=== PATIENT | male | born 1960 ===

== ENCOUNTER 2019-03-31 17:22 | Emergency (ER) | payer OTHER ==
--- NOTE | 2019-03-31 17:23 | UC ---
Skin Complaint HPI - HPI Summary HPI Summary: 58 yo male presents with tick bite to LEFT hip. He tells me that he believes it was attached around 12 hours and was not engorged. He removed the tick this evening without issues. He says that he researched the CDC guidelines and admits that his risk of lyme disease transmission is very low, but he wants to be "conservative" and is requesting prophylactic doxycycline at this time. He has not symptoms currently. Does not have the tick with him today - History of Current Complaint Time Seen by Provider: 03/31/19 17:23 Stated Complaint: TICK BITE Hx Obtained From: Patient Onset/Duration: Sudden Onset Current Severity: None - Allergy/Home Medications Allergies/Adverse Reactions: Allergies Allergy/AdvReac Type Severity Reaction Status Date / Time No Known Allergies Allergy Verified 03/31/19 17:38 Home Medications: Home Medications NK [No Home Medications Reported] 03/31/19 [History Confirmed 03/31/19] PMH/Surg Hx/FS Hx/Imm Hx - Additional Past Medical History Additional PMH: none - Surgical History Surgical History: None - Family History Known Family History: Positive: None - Social History Occupation: Employed Full-time Lives: With Family Alcohol Use: Occasionally Substance Use Type: None Smoking Status (MU): Never Smoked Tobacco Review of Systems All Other Systems Reviewed And Are Negative: Yes Constitutional: Positive: Negative Skin: Positive: Other - Tick bite Respiratory: Positive: Negative Cardiovascular: Positive: Negative Neurological: Positive: Negative Psychological: Positive: Negative Physical Exam - Summary Physical Exam Summary: GENERAL: NAD. WDWN. No pain distress. SKIN: LEFT HIP: there is a 7mm diameter of mild erythema and edema with central 1mm area of superficial skin loss. No streaking, bleeding, or drainage. NECK: Supple. Nontender. No lymphadenopathy. CHEST: No accessory muscle use. Breathing comfortably and in no distress. CV: Pulses intact. Cap refill <2seconds NEURO: Alert. PSYCH: Age appropriate behavior. Triage Information Reviewed: Yes Vital Signs: Vital Signs: Temp Pulse Resp BP Pulse Ox 97.0 F 67 18 154/95 100 03/31/19 17:29 03/31/19 17:29 03/31/19 17:29 03/31/19 17:29 03/31/19 17:29 Vital Signs Reviewed: Yes Course/Dx - Course Course Of Treatment: Area consistent with tick bite. No infection present. Discussed low risk of lyme disease transmission and advised against prophylactic treatment, but pt continued to request - therefore he was given 200mg doxy in the clinic and advised to monitor for signs/symptoms of lyme disease. - Diagnoses Provider Diagnosis: Tick bite Discharge - Sign-Out/Discharge Documenting (check all that apply): Patient Departure All imaging exams completed and their final reports reviewed: No Studies - Discharge Plan Condition: Stable Disposition: HOME Patient Education Materials: Tick Bite (ED) Referrals: No Primary Care Phys,NOPCP [Primary Care Provider] - Additional Instructions: If you develop a fever, shortness of breath, chest pain, new or worsening symptoms - please call your PCP or go to the ED immediately. Your blood pressure was high at todays visit. Please see your primary provider within 4 weeks for recheck and re-evaluation. TICK BITE: You have been bitten by a tick. Once the tick is removed, these "bites" usually cause no problems. Tick fever, tick paralysis, [place] Spotted fever, and Lyme disease are uncommon -- but you should mention this tick bite to your doctor if you develop unusual symptoms in the next several weeks. If you develop any of the following, please see your physician promptly: (1) Fever, chills, or generalized malaise associated with a headache. (2) A red round area at the site of the bite (or elsewhere) (3) Joint pain, joint swelling or generalized weakness. (4) Redness, swelling, or drainage at the site of the bite. - Billing Disposition and Condition Condition: STABLE Disposition: Home - Attestation Statements Provider Attestation: I was available for consult. This patient was seen by the [facility]. The patient was not presented to , seen by or examined by sc -Sathya Bear MD
[2019-03-31 17:36] VITALS: BP 154/95
[2019-03-31] MEDS ORDERED: DOXYcycline CAP(*) 100 MG PO ONE (17:40)
== END 2019-03-31 17:47 | disposition home or self-care (01) ==
LOC: UCEAST 17:22
DX: S70.262A Insect bite (nonvenomous), left hip, initial encounter (principal); W57.XXXA Bitten or stung by nonvenomous insect and other nonvenomous arthropods, initial encounter; Y92.9 Unspecified place or not applicable
CPT/HCPCS: 99202; A9270-GY; G0463